=== PATIENT | female | born 2000 | race American Indian/Alaskan Native ===

== ENCOUNTER 2019-03-09 20:18 | Emergency (ER) | payer OTHER ==
--- NOTE | 2019-03-09 20:37 | Emergency Department Report ---
Blank Doc - Documentation Documentation: This is a 18-year-old female that presents sore throat. This initial assessment/diagnostic orders/clinical plan/treatment(s) is/are subject to change based on patient's health status, clinical progression and re- assessment by fellow clinical providers in the ED. Further treatment and workup at subsequent clinical providers discretion. Patient/guardians urged not to elope from the ED as their condition may be serious if not clinically assessed and managed. Initial orders include: 1- Patient sent to [facility] for further evaluation and treatment 2- strep swab
[2019-03-09 20:40] VITALS: BP 135/85
[2019-03-09] MEDS ORDERED: TRIMOX PO ONE (21:44)
[2019-03-09] MEDS ORDERED: DELTASONE PO ONE (21:44)
[2019-03-09] MEDS ORDERED: IBUPROFEN PO ONE (21:44)
--- NOTE | 2019-03-09 21:50 | Emergency Department Report ---
ED ENT HPI - General Chief complaint: Sore Throat Stated complaint: THROAT SWELLING Time Seen by Provider: 03/09/19 20:35 Source: patient Mode of arrival: Ambulatory Limitations: No Limitations - History of Present Illness Initial comments: This is a 18-year-old female that presents sore throat. Multiple sick coworkers, with same symptoms, pain is 4/10 exacerbated by swallowing pain is improved by nothing , pt has not noted MD chavez complaint: sore throat Onset/Timin -: days(s) Location: throat Severity: moderate Severity scale (0 -10): 5 Quality: burning, sharp Consistency: constant Improves with: none Worsens with: swallowing Associated Symptoms: sore throat - Related Data Previous Rx's Medication Instructions Recorded Last Taken Type Acetaminophen [Acetaminophen TAB] 650 mg PO Q6HR PRN #30 tablet 03/09/19 Unknown Rx Amoxicillin [Trimox CAP] 500 mg PO Q8H 10 Days #30 capsule 03/09/19 Unknown Rx Dextromethorphan/Benzocaine 1 each PO Q4H PRN #24 lozenge 03/09/19 Unknown Rx [Cepacol Sorethroat-Cough Adolph] Allergies Allergy/AdvReac Type Severity Reaction Status Date / Time Sulfa (Sulfonamide Allergy Unknown Verified 03/09/19 20:25 Antibiotics) ED Dental HPI - General Chief complaint: Sore Throat Stated complaint: THROAT SWELLING Time Seen by Provider: 03/09/19 20:35 Source: patient Mode of arrival: Ambulatory Limitations: No Limitations - Related Data Previous Rx's Medication Instructions Recorded Last Taken Type Acetaminophen [Acetaminophen TAB] 650 mg PO Q6HR PRN #30 tablet 03/09/19 Unknown Rx Amoxicillin [Trimox CAP] 500 mg PO Q8H 10 Days #30 capsule 03/09/19 Unknown Rx Dextromethorphan/Benzocaine 1 each PO Q4H PRN #24 lozenge 03/09/19 Unknown Rx [Cepacol Sorethroat-Cough Adolph] Allergies Allergy/AdvReac Type Severity Reaction Status Date / Time Sulfa (Sulfonamide Allergy Unknown Verified 03/09/19 20:25 Antibiotics) ED Review of Systems ROS: Stated complaint: THROAT SWELLING Other details as noted in HPI Constitutional: fever Eyes: denies: eye pain, eye discharge, vision change ENT: throat pain Respiratory: denies: cough, shortness of breath, wheezing Cardiovascular: denies: chest pain, palpitations Endocrine: no symptoms reported Gastrointestinal: denies: abdominal pain, nausea, diarrhea Genitourinary: denies: urgency, dysuria, discharge Musculoskeletal: denies: back pain, joint swelling, arthralgia Skin: denies: rash, lesions Neurological: denies: headache, weakness, paresthesias Psychiatric: denies: anxiety, depression Hematological/Lymphatic: denies: easy bleeding, easy bruising ED Past Medical Hx - Past Medical History Previous Medical History?: Yes Additional medical history: G6PD Defiency - Social History Smoking Status: Never Smoker Substance Use Type: None - Medications Home Medications: Home Medications Medication Instructions Recorded Confirmed Last Taken Type Acetaminophen [Acetaminophen TAB] 650 mg PO Q6HR PRN #30 tablet 03/09/19 Unknown Rx Amoxicillin [Trimox CAP] 500 mg PO Q8H 10 Days #30 capsule 03/09/19 Unknown Rx Dextromethorphan/Benzocaine 1 each PO Q4H PRN #24 lozenge 03/09/19 Unknown Rx [Cepacol Sorethroat-Cough Adolph] ED Physical Exam - General Limitations: No Limitations General appearance: alert, in no apparent distress - Head Head exam: Present: atraumatic, normocephalic - Eye Eye exam: Present: normal appearance, PERRL, EOMI Pupils: Present: normal accommodation - ENT ENT exam: Present: mucous membranes moist, TM's normal bilaterally, normal external ear exam - Expanded ENT Exam Expanded Ear exam: Present: normal external inspection Mouth exam: Absent: trismus Throat exam: Positive: tonsillar erythema, tonsillomegaly, tonsillar exudate, other (uvula midline white tonsilar exudate no stridor no peritonsilar abscess ). Negative: R peritonsillar mass - Neck Neck exam: Present: normal inspection, tenderness (anterior cervical lymph tenderness ), full ROM, lymphadenopathy. Absent: thyromegaly - Respiratory Respiratory exam: Present: normal lung sounds bilaterally. Absent: respiratory distress, wheezes, stridor, chest wall tenderness - Cardiovascular Cardiovascular Exam: Present: regular rate, normal rhythm, normal heart sounds. Absent: systolic murmur, diastolic murmur, rubs, gallop - GI/Abdominal GI/Abdominal exam: Present: soft, normal bowel sounds. Absent: distended, tenderness, guarding, rebound, bruit, hernia - Rectal Rectal exam: Present: deferred - Extremities Exam Extremities exam: Present: normal inspection - Back Exam Back exam: Present: normal inspection - Neurological Exam Neurological exam: Present: alert, oriented X3, CN II-XII intact, normal gait, reflexes normal - Psychiatric Psychiatric exam: Present: normal affect, normal mood - Skin Skin exam: Present: warm, dry, intact, normal color. Absent: rash ED Course Vital Signs 03/09/19 20:36 Temperature 100.3 F H Pulse Rate 110 H Respiratory 20 Rate Blood Pressure 135/85 O2 Sat by Pulse 98 Oximetry ED Medical Decision Making - Lab Data Labs 03/09/19 Unknown Group A Strep Rapid Negative - Medical Decision Making rapid strep is negative , exam: moderate tonsilar exudate erythema pain no stridor no wheezing uvula midline, plan amoxicillin ibuprofen, cepachol, prednisone, pt will follow up with pcp in 2-3 days return to ed if symptoms worsen. Critical care attestation.: If time is entered above; I have spent that time in minutes in the direct care of this critically ill patient, excluding procedure time. ED Disposition Clinical Impression: Pharyngitis Qualifiers: Pharyngitis/tonsillitis etiology: other specified organisms Qualified Code(s): J02.8 - Acute pharyngitis due to other specified organisms Disposition: - TO HOME OR SELFCARE Is pt being admited?: No Does the pt Need Aspirin: No Condition: Stable Instructions: Pharyngitis (ED) Prescriptions: Acetaminophen [Acetaminophen TAB] 650 mg PO Q6HR PRN #30 tablet PRN Reason: Pain Dextromethorphan/Benzocaine [Cepacol Sorethroat-Cough Adolph] 1 each PO Q4H PRN #24 lozenge PRN Reason: throat pain Amoxicillin [Trimox CAP] 500 mg PO Q8H 10 Days #30 capsule Referrals: [facility] [Outside] - 3-5 Days [facility] [Outside] - 3-5 Days Forms: Work/School Release Form(ED) Time of Disposition: 22:04
[2019-03-09] MEDS ORDERED: TYLENOL PO ONE (22:07)
== END 2019-03-09 22:15 | disposition home or self-care (01) ==
LOC: ED 20:18
DX: J02.9 Acute pharyngitis, unspecified (principal); Z88.2 Allergy status to sulfonamides; Z79.899 Other long term (current) drug therapy
CPT/HCPCS: 87116; 87430; 99283; J7512